=== PATIENT | male | born 1965 | race Caucasian/White ===

== ENCOUNTER 2017-08-24 09:35 | Inpatient (IN) | payer SELFPAY ==
[2017-08-24 10:14] LABS: #Basophils 0.1 thou/uL (0.0-0.2); #Eosinphils 0.1 thou/uL (0.0-0.7); #Lymphocytes 2.5 thou/uL (1.20-3.40); #Neutrophils 7.1 thou/uL (1.40-6.50); %Basophils 0.6 % (0.0-1.0); %Eosinophils 1.4 % (0.0-10.0); %Lymphocytes 23.2 % (21.0-51.0); %Monocytes 8.9 % (0.0-10.0); Hematocrit 53.2 % (42.0-52.0); Mean Platelet Volume 6.9 fL (7.4-10.4); Red Blood Cell (RBC) Count 5.26 mill/uL (4.70-6.10); White Blood Cell (WBC) Count 10.7 thou/uL (4.8-10.8)
[2017-08-24 10:36] LABS: ALT (SGPT) 61 U/L (8-55); AST (SGOT) 54 U/L (5-34); Alkaline Phosphatase 123 U/L (40-150); Anion Gap 13 mmol/L (10-20); BUN (Urea Nitrogen) 29 mg/dL (8.4-25.7); Bilirubin, Total 0.9 mg/dL (0.2-1.2); Calc. Creatinine Clearance 0 mL/min (70-130); Calcium 9.4 mg/dL (7.8-10.44); Carbon Dioxide 29 mmol/L (22-29); Chloride 100 mmol/L (98-107); Estimated GFR-MDRD 52; Protein, Total 7.9 g/dL (6.0-8.3)
--- NOTE | 2017-08-24 10:44 | RAD ---
CHEST 1 VIEW: HISTORY: Dyspnea. COMPARISON: None. FINDINGS: There is mild blunting of the right and left costophrenic sulcus. Lungs are hypoinflated. The heart size is enlarged. Mild pulmonary venous congestion. IMPRESSION: Cardiomegaly with mild pulmonary venous congestion. POS: [facility]
[2017-08-24 10:53] LABS: Troponin I 0.028 ng/mL (< 0.028)
[2017-08-24] MEDS ORDERED: Nitroglycerin 2% Ointment 1 INCH/1 GM Packet ONE (11:30)
[2017-08-24] MEDS ORDERED: Furosemide 40 MG/4 ML VIAL ONE (11:30)
[2017-08-24] MEDS ORDERED: Lidocaine Viscous Sol 2% 15 ml UD Cup ONE (12:22)
[2017-08-24] MEDS ORDERED: Mag-Al 1200 mg/1200 mg/30 ML UDCUP ONE (12:22)
--- NOTE | 2017-08-24 13:12 | HP ---
PRIMARY CARE PHYSICIAN: City call admission. REASON FOR ADMISSION: Acute on chronic systolic congestive heart failure exacerbation. HISTORY OF PRESENT ILLNESS: A 52-year-old male who has a history of dyspnea on exertion for about 1-1/2 months. Patient was having orthopnea and increasing lower extremity swelling and he was feeling chest congestion for about 1-1/2 months. His condition was declining in the form of his capacity to work and do stuff. He was getting more and more short of breath by doing stuff and that is why he went to [facility] where he was admitted for about 3-4 days in hospital and he had echocardiography done and at that time, he was treated with Lasix. He was given prescription of medication, but he was not able to refill those medications and on the day of discharge, he was given instruction to use LifeVest, but patient wanted to get second opinion and that is why he went to [facility] where he was observed overnight and he was given diagnosis of COPD, CHF and pneumonia, and exactly same diagnosis was also told at [facility]. The patient lives in [place], [place] and he over there hospital is closed and his physician moved from that area to [place] and since then patient does not have any primary care physician and he was not able to get medication. Patient has long history of hypertension for about 25 years and he was taking medications with control blood pressure. He is also a smoker up until 1 week ago when he was not able to smoke because of shortness of breath. He also has previous history of polysubstance abuse. Patient denies any cough productive of sputum. He denies any hemoptysis. He denies any calf tenderness. He denies any dizziness, palpitations or syncope. He denies any abdominal pain, constipation, diarrhea, melena or hematochezia. He denies any urinary tract infection symptoms. In our emergency room, patient was given Lasix and after that he had significant diuretic response. At this point, we are admitting this patient for further evaluation and treatment. PAST MEDICAL HISTORY: Recent diagnosis of congestive heart failure suspecting systolic heart failure, but type of EF is not exactly known, hypertension and COPD. PAST SURGICAL HISTORY: Colon resection, cholecystectomy, lower back surgery, cardiac catheterization about a year ago which was done at [facility] per patient and he was told that he does not have any blockage. PAST PSYCHIATRIC HISTORY: Anxiety and depression. SOCIAL HISTORY: The patient is former drug abuser. He abused cocaine, marijuana and methamphetamine. He used to smoke about 1 pack per day, but he tried to reduce smoking about a week. Otherwise, he used to be 1 pack smoker every day basis. He also drinks alcohol periodically. Currently, the patient denies any alcohol, smoking, or other illicit drug abuse. FAMILY HISTORY: Strong Positive family history of heart disease, congestive heart failure. ALLERGIES: No known drug allergies. CURRENT HOME MEDICATIONS: The patient is currently not taking any prescribed or non-prescribed medication. He does not have any medication from other hospital. He did not refill the prescription. EMERGENCY ROOM COURSE: Patient is given nitropatch, GI cocktail, Lasix 40 mg IV. REVIEW OF SYSTEMS: The following complete review of systems was negative, unless otherwise mentioned in the HPI or below: Constitutional: Weight loss or gain, ability to conduct usual activities. Skin: Rash, itching. Eyes: Double vision, pain. ENT/Mouth: Nose bleeding, neck stiffness, pain, tenderness. Cardiovascular: Palpitations, dyspnea on exertion, orthopnea. Respiratory: Shortness of breath, wheezing, cough, hemoptysis, fever, or night sweats. Gastrointestinal: Poor appetite, abdominal pain, heartburn, nausea, vomiting, constipation, or diarrhea. Genitourinary: Urgency, frequency, dysuria, nocturia. Musculoskeletal: Pain, swelling. Neurologic/Psychiatric: Anxiety, depression. Allergy/Immunologic: Skin rash, bleeding tendency. Please see my HPI for pertinent positives and negatives. All other review of systems were reviewed and negative. Review of systems is pretty much not reliable as well, because of patient's mental status changes. PHYSICAL EXAMINATION: VITAL SIGNS: Blood pressure 150/114, pulse 94, respiratory rate 18, temperature 98.4, saturation 95% on room air. Weight 74.8 kilograms. GENERAL: Patient is currently alert, awake, no obvious acute distress. HEAD: Normocephalic, atraumatic. Eyes: Pupils round, reactive to light. Extraocular muscles intact. ENT: Oropharynx within normal limits. Moist mucous membranes. No oral lesions. No pharyngeal erythema, no exudate. NECK: Supple. JVD present. No thyromegaly, no carotid bruit, no meningeal signs of irritation. LUNGS: Few basilar rales noted. Air entry reduced bilaterally. No wheezing, no accessory muscles of respiration in use. CARDIAC: S1, S2 regular, systolic murmur present at the parasternal area, grade 3/6, no gallop. ABDOMEN: Soft, bowel sounds present, nontender, nondistended. No organomegaly , no mass, no suprapubic tenderness. BACK: Unremarkable, no CVA tenderness. EXTREMITIES: Upper extremity: Passive movement of all joints are normal. Lower extremity: Trace edema noted. Good peripheral pulsation. SKIN: Multiple tattoos noted on the skin. The patient also has multiple skin lesions. HEMATOLOGICAL SYSTEM: No lymphadenopathy. PSYCHIATRIC: Normal affect. SIGNIFICANT LABS: EKG based on my review, normal sinus rhythm, left atrial enlargement. Chest x-ray based on my review, cardiomegaly, pulmonary vascular congestion. CBC: WBC 10.7, hemoglobin 17.0, platelet 260, MCV 101.0. BMP: Sodium 137, potassium 4.7, chloride 100, carbon dioxide 29, anion gap 13, BUN 29, creatinine 1.42, glucose 99, calcium 9.4. LFT: AST 54, ALT 61, alkaline phosphatase 123, albumin 3.9. CK-MB 20.9, troponin I 0.028. BNP 1865.6. ASSESSMENT AND PLAN/IMPRESSION: 1. Acute on chronic congestive heart failure. I am suspecting systolic heart failure given his drug abuse. The patient also reports that he had cardiac catheterization done about a year ago, which was known obstructive coronary artery disease and that is why I am suspecting nonischemic cardiomyopathy, but we need to confirm this with echocardiography. At this point, we will try to obtain medical records from other hospital where he was recently admitted and also we will repeat echocardiography in our hospital. We will do serial cardiac enzymes x2. We will continue with Lasix 40 mg IV b.i.d., nitropatch q.8 hourly. We will also start Coreg 3.125 mg p.o. b.i.d. and lisinopril 2.5 mg p.o. daily, fluid restriction 1500 mL per day. We will continue with Lasix 40 mg IV b.i.d. 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 Cardiac rehabilitation will be considered while in hospital. Necessary patient education about heart failure and dietary restriction and fluid restriction discussed with the patient in detail. 2. Macrocytosis. I will start folic acid and vitamin B12 and thiamine therapy. Macrocytosis is most likely related with his alcohol use. 3. Chronic kidney disease stage 3. We will monitor renal function. We will avoid nephrotoxic agent. 4. Transaminitis. I will check hepatitis profile tomorrow. Otherwise, we will repeat LFTs tomorrow one more time. I am suspecting from passive congestion. 5. Tobacco abuse disorder. Smoking cessation counseling given. Healthy lifestyle measures discussed with the patient. 6. History of drug abuse. I will check urine drug screen to rule out any ongoing drug abuse. 7. Hypertension. I will start with Coreg, lisinopril, and nitropatch at this point and adjust blood pressure medication. 8. Chronic obstructive pulmonary disease. We will continue DuoNeb therapy every 6 hourly along with Dulera 2 puffs inhalation b.i.d. 9. Multiple skin lesions suspecting for Staph infection. I will start doxycycline 100 mg p.o. b.i.d. 10. Deep venous thrombosis prophylaxis. Lovenox 40 mg subQ daily. 11. Gastrointestinal prophylaxis, Pepcid 20 mg p.o. b.i.d. 12. Code status: The patient is FULL CODE. The patient's is surrogate decision maker. Disposition plan based on clinical course, we are expecting patient's stay in hospital more than 2 midnights. Plan of care discussed with the patient and other family member at bedside in the emergency room. KESHA
[2017-08-24] MEDS ORDERED: Loperamide HCl 2 MG CAP PO PRN (13:26)
[2017-08-24] MEDS ORDERED: Mag-Al 1200 mg/1200 mg/30 ML UDCUP PO PRN (13:26)
[2017-08-24] MEDS ORDERED: Chloraseptic Spray 180 ml Bottle PO PRN (13:26)
[2017-08-24] MEDS ORDERED: Nitroglycerin 0.4 MG TAB (25 Tab Bottle) SL PRN (13:26)
[2017-08-24] MEDS ORDERED: Milk Of Magnesia 30 ML UDCUP PO PRN (13:26)
[2017-08-24] MEDS ORDERED: hydrALAZINE 20 MG/ML VIAL SLOW IVP PRN (13:26)
[2017-08-24] MEDS ORDERED: Sodium Chloride 0.65% Nasal 44 ML BOT EA NARE PRN (13:26)
[2017-08-24] MEDS ORDERED: Zolpidem Tartrate 5 MG TAB PO PRN (13:26)
[2017-08-24] MEDS ORDERED: Loratadine 10 MG TAB PO PRN (13:26)
[2017-08-24] MEDS ORDERED: Artificial Tears 18 DROP/0.9 ML EA EYE PRN (13:26)
[2017-08-24] MEDS ORDERED: Ondansetron ODT 4 MG TAB PO PRN (13:26)
[2017-08-24] MEDS ORDERED: Eucerin (Mineral Oil/Petrolatum,White) 30 gm Jar TOP PRN (13:26)
[2017-08-24] MEDS ORDERED: Senokot 8.6 MG TAB PO PRN (13:26)
[2017-08-24] MEDS ORDERED: Acetaminophen 325 MG TAB PO PRN (13:26)
[2017-08-24] MEDS ORDERED: Ondansetron HCl/PF 4 MG/2 ML Vial IVP PRN (13:26)
[2017-08-24] MEDS: Furosemide 40 MG/4 ML VIAL SLOW IVP SCH (15:40)
[2017-08-24 16:08] LABS: Bilirubin Negative (Negative); Blood, Urine Negative (Negative); Glucose, Urine (Dipstick) Negative (Negative); Ketone, Urine Negative (Negative); Nitrite Negative (Negative); Protein, Urine (Dipstick) Negative (Neg-Trace); Urobilinogen 0.2 mg/dL (0.2-1.0)
[2017-08-24 16:10] LABS: Bacteria/HPF None Seen HPF (None Seen); Hyaline Casts/LPF 0-3 HYALINE CAST LPF (0-3 Hyaline); RBC/HPF 0-3 HPF (0-3); Squamous Epithelial None Seen HPF (0-3); WBC/HPF None Seen HPF (0-3)
[2017-08-24 16:17] LABS: Amphetamine Not Detected (NotDetected); Methadone Not Detected (NotDetected); Methamphetamine Not Detected (NotDetected)
[2017-08-24] MEDS: Diabetic Tussin 200 MG/10 ML UDCUP PO PRN (16:51)
[2017-08-24 16:54] LABS: Troponin I 0.026 ng/mL (< 0.028)
[2017-08-24] MEDS: Mometasone/Formoterol 120 PUFF INHALER INH SCH (18:39)
[2017-08-24] MEDS: Nicotine 21 MG PATCH TOP SCH (19:37)
[2017-08-24] MEDS: Nitroglycerin 2% Ointment 1 INCH/1 GM Packet TOP SCH (20:35)
[2017-08-24] MEDS: Doxycycline 100 MG CAP PO SCH (20:35)
[2017-08-24] MEDS: Carvedilol 3.125 MG TAB PO SCH (20:35)
[2017-08-24] MEDS: Famotidine 20 MG TAB PO SCH (20:35)
[2017-08-25] MEDS: Nitroglycerin 2% Ointment 1 INCH/1 GM Packet TOP SCH ×3 (05:53→20:19)
[2017-08-25] MEDS: Furosemide 40 MG/4 ML VIAL SLOW IVP SCH ×2 (05:54→14:55)
[2017-08-25 06:16] LABS: ALT (SGPT) 50 U/L (8-55); AST (SGOT) 42 U/L (5-34); Alkaline Phosphatase 116 U/L (40-150); Anion Gap 13 mmol/L (10-20); BUN (Urea Nitrogen) 26 mg/dL (8.4-25.7); Bilirubin, Total 1.5 mg/dL (0.2-1.2); Calc. Creatinine Clearance 68 mL/min (70-130); Calcium 9.2 mg/dL (7.8-10.44); Carbon Dioxide 28 mmol/L (22-29); Chloride 96 mmol/L (98-107); Estimated GFR-MDRD 60; Globulin 3.7 g/dL (2.4-3.5); Protein, Total 7.2 g/dL (6.0-8.3); Uric Acid 8.4 mg/dL (3.5-7.2)
[2017-08-25] MEDS: Mometasone/Formoterol 120 PUFF INHALER INH SCH ×2 (07:15→18:14)
[2017-08-25 07:41] LABS: Hematocrit 52.1 % (42.0-52.0); White Blood Cell (WBC) Count 10.8 thou/uL (4.8-10.8)
[2017-08-25] MEDS: Potassium Chloride 20 MEQ TAB PO SCH ×2 (08:19→17:16)
[2017-08-25] MEDS: Cyanocobalamin (Vitamin B-12) 1,000 MCG TAB PO SCH (08:19)
[2017-08-25] MEDS: Carvedilol 3.125 MG TAB PO SCH ×2 (08:19→20:18)
[2017-08-25] MEDS: Famotidine 20 MG TAB PO SCH ×2 (08:20→20:18)
[2017-08-25] MEDS: Enoxaparin Sodium 40 MG/0.4 ML SYRINGE SC SCH (08:20)
[2017-08-25] MEDS: Doxycycline 100 MG CAP PO SCH ×2 (08:20→20:18)
[2017-08-25] MEDS: Lisinopril 2.5 MG TAB PO SCH (08:21)
[2017-08-25] MEDS: Multivitamin W/ Minerals 1 TAB PO SCH (08:21)
[2017-08-25] MEDS: Folic Acid 1 MG TAB PO SCH (08:21)
[2017-08-25] MEDS ORDERED: FLU VACC QS2017-18 36 mo. & older 0.5 ML SYRINGE IM ONE (09:00)
[2017-08-25 09:41] LABS: Neutrophil 75 % (42-75)
--- NOTE | 2017-08-25 09:51 | PDOC.PN ---
- Subjective Encounter Start Date: 08/25/17 Encounter Start Time: 07:30 -: old records requested/rev pt has good diuretic response, no fever, c/o cramps, no chest pain Patient seen and examined. No overnight events - Objective MAR Reviewed: Yes Vital Signs & Weight: Vital Signs (12 hours) Temp Pulse Resp BP Pulse Ox 08/25/17 08:21 94 08/25/17 08:15 97.8 F 94 20 121/83 93 L 08/25/17 07:15 99 15 97 08/25/17 04:53 92 L 08/25/17 04:00 97.7 F 97 18 130/90 92 L 08/25/17 00:45 95 08/25/17 00:00 97.5 F L 87 20 124/80 95 Weight Weight 156 lb 3.2 oz I&O: 08/24/17 08/25/17 08/26/17 06:59 06:59 06:59 Intake Total 950 Output Total 1800 Balance -850 Result Diagrams: 08/25/17 05:03 08/25/17 05:03 Radiology Reviewed by me: Yes EKG Reviewed by me: Yes (NSR) Phys Exam - Physical Examination Constitutional: NAD HEENT: PERRLA, moist MMs, sclera anicteric Neck: no JVD, supple Respiratory: no wheezing, no rhonchi few rales+ Cardiovascular: RRR, no significant murmur, no rub Gastrointestinal: soft, non-tender, no distention, positive bowel sounds Musculoskeletal: no edema, pulses present Neurological: non-focal, normal sensation, moves all 4 limbs Lymphatic: no nodes Psychiatric: normal affect, A&O x 3 Skin: no rash, normal turgor, cap refill <2 seconds Dx/Plan (1) Acute on chronic systolic (congestive) heart failure Code(s): I50.23 - ACUTE ON CHRONIC SYSTOLIC (CONGESTIVE) HEART FAILURE Status : Acute (2) CKD (chronic kidney disease) stage 3, GFR 30-59 ml/min Code(s): N18.3 - CHRONIC KIDNEY DISEASE, STAGE 3 (MODERATE) Status: Chronic (3) Hypertension Code(s): I10 - ESSENTIAL (PRIMARY) HYPERTENSION Status: Chronic (4) Macrocytosis Code(s): D75.89 - OTHER SPECIFIED DISEASES OF BLOOD AND BLOOD-FORMING ORGANS Status: Chronic (5) Tobacco abuse Code(s): Z72.0 - TOBACCO USE Status: Chronic - Plan cont current plan of care, plan discussed w/ family * echo pending * continue current optimum medical therapy for CHF * will continue to adjust meds. * replace electrolytes as needed * medication reviewed as below * symptomatic treatment Review of Systems - Review of Systems Constitutional: negative: Fever, Chills, Sweats, Weakness, Malaise, Other ENT: negative: Ear Pain, Ear Discharge, Nose Pain, Nose Discharge, Nose Congestion, Mouth Pain, Mouth Swelling, Throat Pain, Throat Swelling, Other Respiratory: Shortness of Breath, SOB with Excertion. negative: Cough, Dry, Hemoptysis, Pleuritic Pain, Sputum, Wheezing Cardiovascular: negative: Chest Pain, Palpitations, Orthopnea, Paroxysmal Noc. Dyspnea, Edema, Light Headedness, Other Gastrointestinal: negative: Nausea, Vomiting, Abdominal Pain, Diarrhea, Constipation, Melena, Hematochezia, Other Genitourinary: negative: Dysuria, Frequency, Incontinence, Hematuria, Retention , Other Musculoskeletal: negative: Neck Pain, Shoulder Pain, Arm Pain, Back Pain, Hand Pain, Leg Pain, Foot Pain, Other Skin: negative: Rash, Lesions, Walker, Bruising, Other - Medications/Allergies Allergies/Adverse Reactions: Allergies Allergy/AdvReac Type Severity Reaction Status Date / Time iodine Allergy Verified 08/24/17 14:36 Medications: Current Medications Acetaminophen (Tylenol) 650 mg PO Q4H PRN PRN Reason: Headache/Fever or Pain Hydrocodone Bitart/Acetaminophen ([place] 5/325) 1 tab PO Q4H PRN PRN Reason: Moderate Pain (4-6) Al Hydroxide/Mg Hydroxide (Maalox) 30 ml PO Q6H PRN PRN Reason: Heartburn or Indigestion Albuterol/Ipratropium (Duoneb) 3 ml NEB [id number] [facility] Last Admin: 08/25/17 07:18 Dose: Not Given Artificial Tears (Tears Naturale) 0 drop EA EYE PRN PRN PRN Reason: Dry Eyes Aspirin (Aspirin Chewable) 81 mg PO DAILY [facility] Last Admin: 08/25/17 08:19 Dose: 81 mg Carvedilol (Coreg) 3.125 mg PO BID [facility] Last Admin: 08/25/17 08:19 Dose: 3.125 mg Cyanocobalamin (Vitamin B-12) 1,000 mcg PO DAILY [facility] Last Admin: 08/25/17 08:19 Dose: 1,000 mcg Doxycycline Hyclate (Vibramycin) 100 mg PO BID [facility] Last Admin: 08/25/17 08:20 Dose: 100 mg Enoxaparin Sodium (Lovenox) 40 mg SC 0900 [facility] Last Admin: 08/25/17 08:20 Dose: 40 mg Famotidine (Pepcid) 20 mg PO BID [facility] Last Admin: 08/25/17 08:20 Dose: 20 mg Folic Acid (Folvite) 1 mg PO DAILY [facility] Last Admin: 08/25/17 08:21 Dose: 1 mg Furosemide (Lasix) 40 mg SLOW IVP 0600,1400 [facility] Last Admin: 08/25/17 05:54 Dose: 40 mg Guaifenesin (Robitussin Sf) 200 mg PO Q4H PRN PRN Reason: Cough Last Admin: 08/24/17 16:51 Dose: 200 mg Hydralazine HCl (Apresoline) 10 mg SLOW IVP Q4H PRN PRN Reason: Systolic BP > 180 Iron/Minerals/Multivitamins (Theragran M) 1 tab PO DAILY [facility] Last Admin: 08/25/17 08:21 Dose: 1 tab Lisinopril (Zestril) 2.5 mg PO DAILY [facility] Last Admin: 08/25/17 08:21 Dose: 2.5 mg Loperamide HCl (Imodium) 2 mg PO PRN PRN PRN Reason: Diarrhea/Loose Stools Loratadine (Claritin) 10 mg PO DAILYPRN PRN PRN Reason: Sinus Symptoms Magnesium Hydroxide (Milk Of Magnesium) 30 ml PO DAILYPRN PRN PRN Reason: Constipation Magnesium Oxide (Magnesium Oxide) 400 mg PO 1100 [facility] Mineral Oil/White Petrolatum (Eucerin Cream) 0 gm TOP BIDPRN PRN PRN Reason: Dry Skin Mometasone Furoate/Formoterol Fumar (Dulera 200 Mcg/5 Mcg Inhaler) 2 puff INH BID-RT [facility] Last Admin: 08/25/17 07:15 Dose: 2 puff Nicotine (Nicoderm Patch) 21 mg TOP 1800 [facility] Last Admin: 08/24/17 19:37 Dose: 21 mg Nitroglycerin (Nitrostat) 0.4 mg SL Q5MIN PRN PRN Reason: Chest Pain Nitroglycerin (Nitro-Bid 2% Ointment) 0.5 inch TOP Q8H [facility] Last Admin: 08/25/17 05:53 Dose: Not Given Ondansetron HCl (Zofran Odt) 4 mg PO Q6H PRN PRN Reason: Nausea/Vomiting Ondansetron HCl (Zofran) 4 mg IVP Q6H PRN PRN Reason: Nausea/Vomiting Phenol (Chloraseptic [place] 180 Ml Bot) 0 ml PO PRN PRN PRN Reason: Sore Throat Potassium Chloride (K-Dur) 20 meq PO BID-WM [facility] Last Admin: 08/25/17 08:19 Dose: 20 meq Senna (Senokot) 2 tab PO HSPRN PRN PRN Reason: Constipation Sodium Chloride ([place] Nasal [place] 0.65%) 0 ml EA NARE QIDPRN PRN PRN Reason: Nasal Congestion Thiamine HCl (Thiamine) 100 mg PO DAILY [facility] Last Admin: 08/25/17 08:21 Dose: 100 mg Zolpidem Tartrate (Ambien) 5 mg PO HSPRN PRN PRN Reason: Insomnia
[2017-08-25 11:59] VITALS: BMI 23.7
[2017-08-25] MEDS: Magnesium Oxide 400 MG TAB PO SCH (12:00)
[2017-08-25] MEDS: Nicotine 21 MG PATCH TOP SCH (17:16)
[2017-08-25] MEDS: Diabetic Tussin 200 MG/10 ML UDCUP PO PRN (20:20)
[2017-08-26] MEDS: Nitroglycerin 2% Ointment 1 INCH/1 GM Packet TOP SCH ×3 (04:41→21:02)
[2017-08-26] MEDS: Furosemide 40 MG/4 ML VIAL SLOW IVP SCH ×2 (05:18→14:59)
[2017-08-26] MEDS: Mometasone/Formoterol 120 PUFF INHALER INH SCH (07:47)
--- NOTE | 2017-08-26 08:25 | PDOC.PN ---
- Subjective Encounter Start Date: 08/26/17 Encounter Start Time: 07:45 Subjective: FEELING BETTER, COUGHING UP MUCOUS - Objective MAR Reviewed: Yes Vital Signs & Weight: Vital Signs (12 hours) Temp Pulse Resp BP Pulse Ox 08/26/17 07:24 98.5 F 86 16 137/88 97 08/26/17 04:00 98.0 F 85 18 115/82 93 L Weight Admit Weight 154 lb 4.8 oz Weight 155 lb 9.601 oz I&O: 08/25/17 08/26/17 08/27/17 06:59 06:59 06:59 Intake Total 950 980 Output Total 1800 0577 Balance -185 -3246 Result Diagrams: 08/25/17 05:03 08/25/17 05:03 Phys Exam - Physical Examination Constitutional: NAD HEENT: PERRLA, moist MMs LABIAL LESIONS HEALING, GLOSSITIS Neck: supple, full ROM Respiratory: clear to auscultation bilateral RHONCHI SCANT Cardiovascular: RRR Gastrointestinal: soft, non-tender, no distention Musculoskeletal: no edema, pulses present Neurological: non-focal, moves all 4 limbs Psychiatric: normal affect, A&O x 3 Dx/Plan (1) Acute on chronic systolic (congestive) heart failure Code(s): I50.23 - ACUTE ON CHRONIC SYSTOLIC (CONGESTIVE) HEART FAILURE Status : Acute (2) CKD (chronic kidney disease) stage 3, GFR 30-59 ml/min Code(s): N18.3 - CHRONIC KIDNEY DISEASE, STAGE 3 (MODERATE) Status: Chronic (3) Hypertension Code(s): I10 - ESSENTIAL (PRIMARY) HYPERTENSION Status: Chronic (4) Macrocytosis Code(s): D75.89 - OTHER SPECIFIED DISEASES OF BLOOD AND BLOOD-FORMING ORGANS Status: Chronic (5) Tobacco abuse Code(s): Z72.0 - TOBACCO USE Status: Chronic - Plan cont current plan of care, plan discussed w/ family, out of bed/ambulate EF 10-15% AICD VS. LIFEVEST PER CARDIOLOGY RECCS PENDING -: ADD VISCOUS LIDOCAINE FOR ORAL LESIONS * .
[2017-08-26] MEDS: Doxycycline 100 MG CAP PO SCH ×2 (09:20→21:01)
[2017-08-26] MEDS: Cyanocobalamin (Vitamin B-12) 1,000 MCG TAB PO SCH (09:21)
[2017-08-26] MEDS: Famotidine 20 MG TAB PO SCH ×2 (09:21→21:02)
[2017-08-26] MEDS: Potassium Chloride 20 MEQ TAB PO SCH ×2 (09:21→17:17)
[2017-08-26] MEDS: Carvedilol 3.125 MG TAB PO SCH ×2 (09:21→21:01)
[2017-08-26] MEDS: Folic Acid 1 MG TAB PO SCH (09:21)
[2017-08-26] MEDS: Multivitamin W/ Minerals 1 TAB PO SCH (09:21)
[2017-08-26] MEDS: Enoxaparin Sodium 40 MG/0.4 ML SYRINGE SC SCH (09:22)
[2017-08-26] MEDS: Lidocaine Viscous Sol 2% 15 ml UD Cup SSP SCH ×2 (09:27→17:17)
[2017-08-26] MEDS: Lisinopril 2.5 MG TAB PO SCH (09:27)
[2017-08-26] MEDS: Magnesium Oxide 400 MG TAB PO SCH (11:44)
[2017-08-26] MEDS: Nicotine 21 MG PATCH TOP SCH (17:22)
[2017-08-27] MEDS: Nitroglycerin 2% Ointment 1 INCH/1 GM Packet TOP SCH ×3 (05:14→20:47)
[2017-08-27] MEDS: Furosemide 40 MG/4 ML VIAL SLOW IVP SCH ×2 (05:45→14:45)
--- NOTE | 2017-08-27 09:33 | PDOC.PN ---
- Subjective Encounter Start Date: 08/27/17 Encounter Start Time: 07:00 -: old records requested/rev pt is overall doing well, no dyspnea or chest pain, pt is worried about low EF - Objective MAR Reviewed: Yes Vital Signs & Weight: Vital Signs (12 hours) Pulse Resp BP 08/27/17 04:05 82 16 121/82 Weight Admit Weight 154 lb 4.8 oz Weight 157 lb I&O: 08/26/17 08/27/17 08/28/17 06:59 06:59 06:59 Intake Total 980 976 Output Total 2677 1750 Balance -1697 -774 Result Diagrams: 08/25/17 05:03 08/25/17 05:03 EKG Reviewed by me: Yes (NSR) Phys Exam - Physical Examination Constitutional: NAD HEENT: PERRLA, moist MMs, sclera anicteric Neck: no JVD, supple Respiratory: no wheezing, no rales, no rhonchi Cardiovascular: RRR, no significant murmur, no rub Gastrointestinal: soft, non-tender, no distention, positive bowel sounds Musculoskeletal: no edema, pulses present Neurological: non-focal, normal sensation Lymphatic: no nodes Psychiatric: normal affect Skin: no rash, normal turgor Dx/Plan (1) Acute on chronic systolic (congestive) heart failure Code(s): I50.23 - ACUTE ON CHRONIC SYSTOLIC (CONGESTIVE) HEART FAILURE Status : Acute (2) CKD (chronic kidney disease) stage 3, GFR 30-59 ml/min Code(s): N18.3 - CHRONIC KIDNEY DISEASE, STAGE 3 (MODERATE) Status: Chronic (3) Hypertension Code(s): I10 - ESSENTIAL (PRIMARY) HYPERTENSION Status: Chronic (4) Macrocytosis Code(s): D75.89 - OTHER SPECIFIED DISEASES OF BLOOD AND BLOOD-FORMING ORGANS Status: Chronic (5) Tobacco abuse Code(s): Z72.0 - TOBACCO USE Status: Chronic - Plan cont current plan of care, plan discussed w/ family * will add aldactone * continue coreg and lisinopril * medication reviewed as below * symptomatic treatment * continue lasix * today will consult cardiology for AICD evaluation and ischemia evaluation * plan updated to family. Review of Systems - Review of Systems ENT: negative: Ear Pain, Ear Discharge, Nose Pain, Nose Discharge, Nose Congestion, Mouth Pain, Mouth Swelling, Throat Pain, Throat Swelling, Other Respiratory: negative: Cough, Dry, Shortness of Breath, Hemoptysis, SOB with Excertion, Pleuritic Pain, Sputum, Wheezing Cardiovascular: negative: Chest Pain, Palpitations, Orthopnea, Paroxysmal Noc. Dyspnea, Edema, Light Headedness, Other Gastrointestinal: negative: Nausea, Vomiting, Abdominal Pain, Diarrhea, Constipation, Melena, Hematochezia, Other Genitourinary: negative: Dysuria, Frequency, Incontinence, Hematuria, Retention , Other Musculoskeletal: negative: Neck Pain, Shoulder Pain, Arm Pain, Back Pain, Hand Pain, Leg Pain, Foot Pain, Other Skin: negative: Rash, Lesions, Walker, Bruising, Other - Medications/Allergies Allergies/Adverse Reactions: Allergies Allergy/AdvReac Type Severity Reaction Status Date / Time iodine Allergy Verified 08/24/17 14:36 Medications: Current Medications Acetaminophen (Tylenol) 650 mg PO Q4H PRN PRN Reason: Headache/Fever or Pain Hydrocodone Bitart/Acetaminophen ([place] 5/325) 1 tab PO Q4H PRN PRN Reason: Moderate Pain (4-6) Al Hydroxide/Mg Hydroxide (Maalox) 30 ml PO Q6H PRN PRN Reason: Heartburn or Indigestion Albuterol/Ipratropium (Duoneb) 3 ml NEB Q6H PRN PRN Reason: Dyspnea/Wheezing/SOB Artificial Tears (Tears Naturale) 0 drop EA EYE PRN PRN PRN Reason: Dry Eyes Aspirin (Aspirin Chewable) 81 mg PO DAILY [facility] Last Admin: 08/26/17 09:21 Dose: 81 mg Carvedilol (Coreg) 3.125 mg PO BID [facility] Last Admin: 08/26/17 21:01 Dose: 3.125 mg Cyanocobalamin (Vitamin B-12) 1,000 mcg PO DAILY [facility] Last Admin: 08/26/17 09:21 Dose: 1,000 mcg Doxycycline Hyclate (Vibramycin) 100 mg PO BID [facility] Last Admin: 08/26/17 21:01 Dose: 100 mg Enoxaparin Sodium (Lovenox) 40 mg SC 0900 [facility] Last Admin: 08/26/17 09:22 Dose: 40 mg Famotidine (Pepcid) 20 mg PO BID [facility] Last Admin: 08/26/17 21:02 Dose: 20 mg Folic Acid (Folvite) 1 mg PO DAILY [facility] Last Admin: 08/26/17 09:21 Dose: 1 mg Furosemide (Lasix) 40 mg SLOW IVP 0600,1400 [facility] Last Admin: 08/27/17 05:45 Dose: 40 mg Guaifenesin (Robitussin Sf) 200 mg PO Q4H PRN PRN Reason: Cough Last Admin: 08/25/17 20:20 Dose: 200 mg Hydralazine HCl (Apresoline) 10 mg SLOW IVP Q4H PRN PRN Reason: Systolic BP > 180 Iron/Minerals/Multivitamins (Theragran M) 1 tab PO DAILY [facility] Last Admin: 08/26/17 09:21 Dose: 1 tab Lidocaine HCl (Xylocaine 2% Viscous) 15 ml SSP BID-[facility] Last Admin: 08/26/17 17:17 Dose: 15 ml Lisinopril (Zestril) 2.5 mg PO DAILY [facility] Last Admin: 08/26/17 09:27 Dose: 2.5 mg Loperamide HCl (Imodium) 2 mg PO PRN PRN PRN Reason: Diarrhea/Loose Stools Loratadine (Claritin) 10 mg PO DAILYPRN PRN PRN Reason: Sinus Symptoms Magnesium Hydroxide (Milk Of Magnesium) 30 ml PO DAILYPRN PRN PRN Reason: Constipation Magnesium Oxide (Magnesium Oxide) 400 mg PO 1100 [facility] Last Admin: 08/26/17 11:44 Dose: 400 mg Mineral Oil/White Petrolatum (Eucerin Cream) 0 gm TOP BIDPRN PRN PRN Reason: Dry Skin Nicotine (Nicoderm Patch) 21 mg TOP 1800 [facility] Last Admin: 08/26/17 17:22 Dose: 21 mg Nitroglycerin (Nitrostat) 0.4 mg SL Q5MIN PRN PRN Reason: Chest Pain Nitroglycerin (Nitro-Bid 2% Ointment) 0.5 inch TOP Q8H [facility] Last Admin: 08/27/17 05:14 Dose: Not Given Ondansetron HCl (Zofran Odt) 4 mg PO Q6H PRN PRN Reason: Nausea/Vomiting Ondansetron HCl (Zofran) 4 mg IVP Q6H PRN PRN Reason: Nausea/Vomiting Phenol (Chloraseptic [place] 180 Ml Bot) 0 ml PO PRN PRN PRN Reason: Sore Throat Potassium Chloride (K-Dur) 20 meq PO BID-WM [facility] Last Admin: 08/26/17 17:17 Dose: 20 meq Senna (Senokot) 2 tab PO HSPRN PRN PRN Reason: Constipation Sodium Chloride ([place] Nasal [place] 0.65%) 0 ml EA NARE QIDPRN PRN PRN Reason: Nasal Congestion Sodium Chloride (Flush - Normal Saline) 10 ml IVF Q12HR [place] Sodium Chloride (Flush - Normal Saline) 10 ml IVF PRN PRN PRN Reason: Saline Flush Spironolactone (Aldactone) 25 mg PO QAM-WM [facility] Thiamine HCl (Thiamine) 100 mg PO DAILY [facility] Last Admin: 08/26/17 09:21 Dose: 100 mg Zolpidem Tartrate (Ambien) 5 mg PO HSPRN PRN PRN Reason: Insomnia
[2017-08-27] MEDS: Multivitamin W/ Minerals 1 TAB PO SCH (09:37)
[2017-08-27] MEDS: Spironolactone 25 MG TAB PO SCH (09:37)
[2017-08-27] MEDS: Doxycycline 100 MG CAP PO SCH ×2 (09:37→20:49)
[2017-08-27] MEDS: Carvedilol 3.125 MG TAB PO SCH (09:37)
[2017-08-27] MEDS: Cyanocobalamin (Vitamin B-12) 1,000 MCG TAB PO SCH (09:37)
[2017-08-27] MEDS: Potassium Chloride 20 MEQ TAB PO SCH ×2 (09:37→17:37)
[2017-08-27] MEDS: Famotidine 20 MG TAB PO SCH ×2 (09:38→20:49)
[2017-08-27] MEDS: Lisinopril 2.5 MG TAB PO SCH ×2 (09:38→20:49)
[2017-08-27] MEDS: Folic Acid 1 MG TAB PO SCH (09:38)
[2017-08-27] MEDS: Enoxaparin Sodium 40 MG/0.4 ML SYRINGE SC SCH (09:39)
[2017-08-27] MEDS ORDERED: Bisacodyl 10 MG SUPP PR PRN (10:11)
[2017-08-27] MEDS: Magnesium Oxide 400 MG TAB PO SCH (11:51)
[2017-08-27] MEDS: Lidocaine Viscous Sol 2% 15 ml UD Cup SSP SCH ×2 (11:51→17:37)
--- NOTE | 2017-08-27 15:09 | CON ---
DATE OF CONSULTATION: 08/27/2017 HISTORY OF PRESENT ILLNESS: Nacho Anderson a 52-year-old white male admitted with increased shortness of breath. Approximately 3 years ago, he was incarcerated and began to have chest discomfort. He was taken to [facility] and then transferred to [facility] in [place]. He underwent cardiac catheterization and was told that he did not have any significant blockages. No mention was made of weakness of his heart. Over the last one and a half month, he began having increasing shortness of breath as well as orthopnea. He went to [facility] and was admitted for 3-4 days. He was placed on Lasix and given a prescription for medications, but apparently for some reason, unable to get those medications. He also was instructed to use LifeVest. He now is admitted here for further evaluation. He denies any palpitations, chest pain or syncope. He does have some peripheral edema around his ankles which resolved with diuresis. PAST MEDICAL HISTORY: Hypertension, congestive heart failure, and COPD. Denies any history of hypercholesterolemia or diabetes. OPERATIONS: Colon resection, cholecystectomy, lower back surgery. MEDICATIONS AT HOME: Includes clonidine 0.2 b.i.d., enalapril 20 daily, furosemide 20 daily, hydrochlorothiazide 25 b.i.d., loratadine p.r.n., potassium 99 mg daily. ALLERGIES: None. SOCIAL HISTORY: He smoked up to 1 pack per day and was trying to cut back. He was a former IV drug abuser. He did use cocaine, methamphetamine use and marijuana. He did not drink alcohol much. FAMILY HISTORY: Positive for coronary artery disease. REVIEW OF SYSTEMS: Twelve point review of systems otherwise unremarkable. PHYSICAL EXAMINATION: VITAL SIGNS: 132/92, pulse 87. HEENT: PERRL. NECK: Supple. CHEST: Reveals somewhat distant, but clear breath sounds at this time. There is no wheezing. CARDIAC: S1 and S2 are normal without any S3 or S4. There is a 2/6 holosystolic murmur at the apex. ABDOMEN: Normal bowel sounds, without tenderness or organomegaly. EXTREMITIES: Revealed no clubbing, cyanosis or edema. NEUROLOGIC: Grossly intact. SKIN: Warm and dry. IMAGING AND LABORATORY DATA: EKG revealed normal sinus rhythm with left atrial enlargement, poor R-wave progression V1-V4. Echocardiogram revealed ejection fraction of 10%-15% with evidence of diastolic dysfunction, left ventricular enlargement, moderate mitral regurgitation, moderate tricuspid regurgitation. Hemoglobin 17.0, hematocrit 52.1, white count 10,800, platelets 265,000. Sodium 133, potassium 4.4, chloride 96, carbon dioxide 28, BUN 26, creatinine 1.27, and CK-MB 20.9. However, no CK was performed. Troponin I's are normal x3. BNP 1865.6. Urine drug screen is unremarkable. Hepatitis A, B, and C were all negative. IMPRESSION: 1. Acute on chronic systolic and diastolic congestive heart failure. 2. Reportedly normal coronary arteries on catheterization 3 years ago in [place]. 3. Hypertension. 4. Smoker. 5. History of IV drug abuse. 6. Chronic obstructive pulmonary disease. PLAN: The patient has symptoms for approximately 6 weeks and has an ejection fraction of 10%-15%. I would increase his carvedilol to 6.25 b.i.d. and his lisinopril to 2.5 b.i.d. He will continue to be diuresed. Request was made for his catheterization 3 years ago in [place]. Also, it was recommended that he wear a LifeVest over the next 3 months. At the present time, he does not qualify for ICD placement until he has been treated appropriately for 3 months. KESHA
[2017-08-27] MEDS: Nicotine 21 MG PATCH TOP SCH (17:37)
[2017-08-27] MEDS: Carvedilol 6.25 MG TAB PO SCH (17:37)
[2017-08-28] MEDS: Nitroglycerin 2% Ointment 1 INCH/1 GM Packet TOP SCH ×2 (03:23→12:40)
[2017-08-28] MEDS: Furosemide 40 MG/4 ML VIAL SLOW IVP SCH (05:08)
[2017-08-28] MEDS: Folic Acid 1 MG TAB PO SCH (08:52)
[2017-08-28] MEDS: Potassium Chloride 20 MEQ TAB PO SCH (08:52)
[2017-08-28] MEDS: Multivitamin W/ Minerals 1 TAB PO SCH (08:52)
[2017-08-28] MEDS: Cyanocobalamin (Vitamin B-12) 1,000 MCG TAB PO SCH (08:52)
[2017-08-28] MEDS: Carvedilol 6.25 MG TAB PO SCH (08:52)
[2017-08-28] MEDS: Famotidine 20 MG TAB PO SCH (08:52)
[2017-08-28] MEDS: Doxycycline 100 MG CAP PO SCH (08:52)
[2017-08-28] MEDS: Spironolactone 25 MG TAB PO SCH (08:52)
[2017-08-28] MEDS: Lidocaine Viscous Sol 2% 15 ml UD Cup SSP SCH (08:53)
[2017-08-28] MEDS: Lisinopril 2.5 MG TAB PO SCH (08:53)
[2017-08-28] MEDS: Enoxaparin Sodium 40 MG/0.4 ML SYRINGE SC SCH (08:54)
[2017-08-28] MEDS: HYDROcodone/Acetaminophen 5/325 mg Tablet PO PRN ×2 (08:55→12:44)
[2017-08-28] MEDS ORDERED: Polyethylene Glycol 3350 17 GM Packet PO SCH (09:00)
--- NOTE | 2017-08-28 11:26 | DIS ---
DATE OF ADMISSION: 08/24/2017 DATE OF DISCHARGE: 08/28/2017 PRIMARY CARE PHYSICIAN: [facility] call admission. DISCHARGE DISPOSITION: Home. PRIMARY DISCHARGE DIAGNOSIS: Acute on chronic systolic congestive heart failure. SECONDARY DISCHARGE DIAGNOSES: Nonischemic cardiomyopathy; tobacco abuse disorder; history of polysu bstance abuse; moderate tricuspid regurgitation; moderate mitral regurgitation; macrocytosis; hyperte nsion; chronic kidney disease, stage 3; chronic systolic heart failure. PRIMARY PROCEDURE/OPERATION: None. RADIOLOGICAL INVESTIGATION: Chest x-ray showed cardiomegaly, pulmonary vascular congestion. Echocar diography showed EF 10%-15%, moderate TR and moderate MR. SIGNIFICANT LABORATORY DATA: WBC 10.8, hemoglobin 17.0, platelets 265. Sodium 133, potassium 4.0, B UN 26, creatinine 1.27, calcium 8.4, AST 42, ALT 50, alkaline phosphatase 116, albumin 3.5. Urinalys is normal. Urine drug screen negative. Hepatitis profile negative. DISCHARGE MEDICATIONS: Aspirin 81 mg p.o. daily, Coreg 6.25 mg p.o. b.i.d., vitamin B12 1000 mcg p.o . daily, Pepcid 20 mg p.o. b.i.d., folic acid 1 mg p.o. daily, Lasix 40 mg p.o. daily, lisinopril 2.5 mg p.o. b.i.d., magnesium oxide 400 mg p.o. daily, multivitamin 1 tablet p.o. daily, potassium chlor nathan 20 mEq p.o. daily, Aldactone 25 mg p.o. daily, thiamine 100 mg p.o. daily, doxycycline 100 mg p.o . b.i.d. for 7 days. CONTRAINDICATIONS: None. CODE STATUS: FULL CODE. INPATIENT CONSULTANTS: Dr. Lorenzana was consulted for AICD evaluation. TEST RESULTS PENDING ON DISCHARGE: None. ALLERGIES: IODINE. DISCHARGE PLAN: Post hospital, the patient is advised to follow up with outpatient cardiac rehabilit ation as well as Heart Failure Clinic and Cardiology as instructed. The patient is also advised to f ollow up with primary care physician in 1 week. HOSPITAL COURSE: A 52-year-old male, who was admitted by me on 08/24/2017. Please see my HPI for fu rther details. The patient was admitted for increasing shortness of breath, edema of lower extremity , orthopnea. This patient has new diagnosis of congestive heart failure. He had echocardiography at [facility] and he was instructed to take medication, but he was not taking medication after discharge from hospital, and subsequently, he also went to [facility] where he was observed overnight and he w as given a prescription for medication, but he was not taking medication, because he [place], and he was readmitted in our hospital for increasing shortness of breath. He was havin g congestive heart failure exacerbation. During this admission, we repeated echocardiography and fou nd with EF 10%-15% with moderate MR and moderate TR. We treated him with IV Lasix, Coreg, lisinopril , Aldactone therapy while in hospital. Cardiology was consulted for ischemic evaluation as well as A ICD evaluation. At this point, because of his noncompliance with the treatment, Cardiology recommend ed to continue medical therapy for at least 3-6 months and then repeat echocardiography to consider A ICD evaluation. On quality assurance monitor final, he never had any nonsustained ventricular tachycardia or any k ind of arrhythmia. During this hospital course, we adjusted the above-mentioned medication and he wa s euvolemic. His LFT was abnormal and that is why we checked hepatitis profile that was also normal. His renal function was also stabilized and improved with diuretic therapy. The patient's symptomat ology significantly improved. By the time of discharge, he was able to lie down flat without any ort hopnea or any swelling. He was completely euvolemic. Cardiology recommended a LifeVest arrangement, but this patient has no insurance, and that is why we are working with the mental health case manager to assist wi th medication as well as LifeVest if possible. Otherwise, this patient is medically stable for disch arge later on today. While in hospital, we gave him doxycycline, because he was having multiple skin lesions which was suspected for folliculitis and had been treated with oral doxycycline with signifi cant improvement. While in hospital, we provided patient education about heart failure, dietary education, medication c ompliance education, and avoidance of polysubstance was discussed. PHYSICAL EXAMINATION: The patient is seen and examined at bedside today. VITAL SIGNS: Currently, temperature 97.8, pulse 89, respiratory rate 16, saturation 95% on room air, blood pressure 124/93, weight 154 pounds. GENERAL: The patient is currently alert, awake, in no acute distress. HEAD: Normocephalic, atraumatic. LUNGS: Clear. CARDIAC: S1, S2 regular without any murmur. ABDOMEN: Soft and benign without any tenderness. EXTREMITIES: No edema. NEUROLOGIC: Nonfocal examination. All new medication prescription sent to his pharmacy. Total time spent on discharge day, 31 minutes.
[2017-08-28] MEDS: Magnesium Oxide 400 MG TAB PO SCH (12:00)
[2017-08-28] MEDS ORDERED: Furosemide 40 MG TAB PO SCH (14:00)
[2017-08-28] MEDS ORDERED: Furosemide 20 MG TAB PO SCH (14:00)
[2017-08-28 16:52] VITALS: BP 132/93; TEMP 97.6
--- NOTE | 2017-09-21 14:04 | EKG ---
Test Reason : Blood Pressure : / mmHG Vent. Rate : 099 BPM Atrial Rate : 099 BPM P-R Int : 146 ms QRS Dur : 082 ms QT Int : 356 ms P-R-T Axes : 071 009 063 degrees QTc Int : 456 ms Normal sinus rhythm Left atrial enlargement Anterior infarct , age undetermined Poor R wave progression T wave inversion Abnormal ECG Confirmed by BRENDA ARANDA ([id number]), book or script editor FIDELINA HWANG ([id number]) on 09/21/2017 2:04:34 PM Referred By: Confirmed By:BRENDA ARANDA
== END 2017-08-28 16:50 | disposition home or self-care (01) | DRG 291 ==
LOC: ERS 09:35 → 2NO 13:37
PROVIDERS: ADMIT Internal Medicine; ATTEND Internal Medicine
DX: I13.0 Hypertensive heart and chronic kidney disease with heart failure and stage 1 through stage 4 chronic kidney disease, or unspecified chronic kidney disease (principal); I50.23 Acute on chronic systolic (congestive) heart failure; I42.9 Cardiomyopathy, unspecified; N18.3 Chronic kidney disease, stage 3 (moderate); I07.1 Rheumatic tricuspid insufficiency; F17.210 Nicotine dependence, cigarettes, uncomplicated; I34.0 Nonrheumatic mitral (valve) insufficiency; D75.89 Other specified diseases of blood and blood-forming organs; Z91.14 Patient's other noncompliance with medication regimen; J44.9 Chronic obstructive pulmonary disease, unspecified; R74.0 Nonspecific elevation of levels of transaminase and lactic acid dehydrogenase [LDH]; L98.9 Disorder of the skin and subcutaneous tissue, unspecified
CPT/HCPCS: 36415; 71010; 80053; 80074; 80306; 81001; 82553; 83880; 84484; 84550; 85007; 85025; 85027; 90471; 90682; 90732; 93005; 93306; 93798; 94640; 94664; 96374; A4216; G0008; G0009; J1650; J1940; J7620; Q2036

== ENCOUNTER 2018-01-04 11:43 | Inpatient (IN) | payer OTHER, SELFPAY ==
[2018-01-04] MEDS ORDERED: Albuterol Sulfate 2.5 mg/3 ml Neb ONE (12:22)
--- NOTE | 2018-01-04 12:49 | RAD ---
AP VIEW CHEST: HISTORY: Dyspnea, 52-year-old male. FINDINGS: AP view chest is obtained on 01/04/18. Comparison is made to previous exam from 08/24/17. AP view chest demonstrates some moderate cardiomegaly. Mild pulmonary vascular congestion is seen. N o evidence of effusions, pneumonia, or pneumothorax is seen. IMPRESSION: Cardiomegaly and pulmonary vascular congestion. POS: [facility]
[2018-01-04] MEDS ORDERED: Dexamethasone 10 MG/ML VIAL ONE (13:09)
[2018-01-04] MEDS ORDERED: Magnesium Sulfate 2 GM/100 ML BAG ONE (13:09)
[2018-01-04 13:12] LABS: Hemoglobin 16.8 g/dL (14.0-18.0); Mean Corpuscular Hemoglobin 32.2 pg (27.0-31.0); Mean Corpuscular Volume 97.5 fl (80.0-94.0); Mean Platelet Volume 7.1 fL (7.4-10.4); Platelet Count 182 thou/uL (130-400); RBC Distribution Width 13.2 % (11.5-14.5); Red Blood Cell (RBC) Count 5.24 mill/uL (4.70-6.10); White Blood Cell (WBC) Count 8.3 thou/uL (4.8-10.8)
[2018-01-04 13:29] LABS: ALT (SGPT) 32 U/L (8-55); AST (SGOT) 38 U/L (5-34); Alkaline Phosphatase 106 U/L (40-150); Anion Gap 12 mmol/L (10-20); BUN (Urea Nitrogen) 18 mg/dL (8.4-25.7); Bilirubin, Total 1.6 mg/dL (0.2-1.2); CK (CPK) 476 U/L (30-200); Calc. Creatinine Clearance 0 mL/min (70-130); Calcium 8.9 mg/dL (7.8-10.44); Carbon Dioxide 24 mmol/L (22-29); Chloride 102 mmol/L (98-107); Estimated GFR-MDRD 50; Globulin 3.7 g/dL (2.4-3.5); Glucose 99 mg/dL (70-105); Lipase 29 U/L (8-78); Potassium 4.2 mmol/L (3.5-5.1); Protein, Total 7.7 g/dL (6.0-8.3); Sodium 134 mmol/L (136-145)
[2018-01-04 13:33] LABS: Troponin I 0.022 ng/mL (< 0.028)
[2018-01-04 13:33] LABS: INR-International Normal Ratio 1.2; Prothrombin Time 15.1 SEC (12.0-14.7)
[2018-01-04 13:34] LABS: PTT 35.3 SEC (22.9-36.1)
[2018-01-04 13:37] LABS: Band 1 % (5-11); Lymphocytes 7 % (21-51); MDiff Complete? YES; Monocytes 6 % (0-10); Neutrophil 86 % (42-75); PLT Morphology Comment Appears Adequate
[2018-01-04] MEDS ORDERED: Nitroglycerin 2% Ointment 1 INCH/1 GM Packet ONE (14:05)
[2018-01-04] MEDS ORDERED: Furosemide 40 MG/4 ML VIAL ONE (14:05)
[2018-01-04 14:25] LABS: Bilirubin Negative (Negative); Blood, Urine Moderate (Negative); Clarity CLEAR (Clear); Glucose, Urine (Dipstick) Negative (Negative); Leukocyte Negative (Negative); Nitrite Negative (Negative); Protein, Urine (Dipstick) 100 mg/dL (Neg-Trace); Specific Gravity, Urine 1.021 (1.002-1.036)
[2018-01-04 14:28] LABS: Bacteria/HPF None Seen HPF (None Seen); Hyaline Casts/LPF 0-3 HYALINE CAST LPF (0-3 Hyaline); Squamous Epithelial None Seen HPF (0-3); WBC/HPF 0-3 HPF (0-3)
[2018-01-04] MEDS ORDERED: Acetaminophen 325 MG TAB PO PRN (15:18)
[2018-01-04] MEDS ORDERED: cefTRIAXone\\ROCEPHIN 1 GM in Sodium Chloride 0.9% 100 ML IVPB SCH (15:30)
[2018-01-04] MEDS ORDERED: cefTRIAXone\\ROCEPHIN 1 GM, Syringe 0.4 ML in Sterile Water 9.6 ML SLOW IVP SCH ×2 (16:00→18:00)
[2018-01-04] MEDS ORDERED: Carvedilol 25 MG TAB PO SCH (17:00)
[2018-01-04 18:01] LABS: CKMB 4.5 ng/mL (0-6.6); Troponin I 0.017 ng/mL (< 0.028)
[2018-01-04] MEDS: Ipratropium Bromide 2.5 ml Neb NEB SCH ×2 (18:35→21:30)
[2018-01-04] MEDS: Heparin 5,000 UNITS/ML VIAL SC SCH (20:05)
[2018-01-04] MEDS: Docusate 100 MG CAP PO SCH (20:05)
[2018-01-04] MEDS ORDERED: Carvedilol 6.25 MG TAB PO SCH (21:00)
--- NOTE | 2018-01-04 23:27 | HP ---
PRIMARY CARE PHYSICIAN: None. CHIEF COMPLAINT: Shortness of breath and cough. HISTORY OF PRESENT ILLNESS: Patient is a very pleasant 52-year-old male with past medical history of systolic heart failure, EF of 10%-15%, COPD, who comes in today with complaints of shortness of kamla th going on for the past 2-3 days. Patient states that for the past couple of days, he has been havi ng worsening shortness of breath on exertion. Denies any orthopnea or PND. Patient states that he h as been drinking a lot of water. The patient states that he is taking his diuretic; however, he ran out of his other medications for about 3 weeks. The patient denies any chest pressure; however, feel s that he has got pain and feels congested in his chest when he coughs. The patient states that he h as been coughing up, initially was clear, but now it is much yellow colored sputum. He also states t hat he has been feeling hot or cold; however, no chills. Patient states that he did not take his tem perature at home. Denies any gaining weight or increased lower extremity swelling. The patient stat es that he has been taking recreational drugs to make him feel better. He stated that he gave away h is LifeVest and was unable to follow up with his terrazzo supervisor due to right issues. Patient's cardiol randaly appointment has been rescheduled to sometimes in January. PAST MEDICAL HISTORY: Diagnosed of CHF systolic heart failure, EF of 10-15%, COPD, hypertension. PAST SURGICAL HISTORY: He had a colon resection, cholecystectomy, lower back surgery, cardiac cathet erization about a year ago in [place] and the patient was told that he does not have any blockages. SOCIAL HISTORY: The patient drinks occasional alcohol. Continues to smoke about 5-6 cigarettes kevin y. Prior to that, he was smoking a pack a day. Recreational drug use, he does use speed to make him feel better. FAMILY HISTORY: Strongly positive for heart disease and congestive heart failure. ALLERGIES: He has no known drug allergies. CURRENT MEDICATIONS: Patient states that he does not recall his medications this is from his previou s discharge summary. He states that none of his medications have changed. Patient is supposed to be on aspirin 81 mg daily, Coreg 6.25 mg p.o. b.i.d., vitamin B12 of 1000 mcg daily, Pepcid 20 mg p.o. b.i.d., folic acid 1 mg p.o. daily, Lasix 40 mg p.o. daily, lisinopril 2.5 mg p.o. b.i.d., magnesium oxide 400 mg p.o. daily, multivitamin 1 p.o. daily, potassium chloride 20 mEq daily, Aldactone 25 mg p.o. daily and thiamine 100 mg p.o. daily. REVIEW OF SYSTEMS: The following complete review of systems was negative, unless otherwise mentioned in the HPI or below: Constitutional: Weight loss or gain, ability to conduct usual activities. Sk in: Rash, itching. Eyes: Double vision, pain. ENT/Mouth: Nose bleeding, neck stiffness, pain, te nderness. Cardiovascular: Palpitations, dyspnea on exertion, orthopnea. Respiratory: Shortness of breath, wheezing, cough, hemoptysis, fever or night sweats. Gastrointestinal: Poor appetite, abdom inal pain, heartburn, nausea, vomiting, constipation, or diarrhea. Genitourinary: Urgency, frequenc y, dysuria, nocturia. Musculoskeletal: Pain, swelling. Neurologic/Psychiatric: Anxiety, depressio n. Allergy/Immunologic: Skin rash, bleeding tendency. PHYSICAL EXAMINATION: VITAL SIGNS: The patient's blood pressure was 130s/60s, heart rates in the 100s. He is 99% on room air, 18 respirations. GENERAL: He is awake, alert, oriented x3, does not appear in any respiratory distress. CARDIOVASCULAR: S1, S2 present, tachycardic, but regular. Chest, no reproducible pain. LUNGS: Mild expiratory wheezing to bilateral bases and mild rhonchi all over. ABDOMEN: Soft, nontender. Bowel sounds are present x2. SKIN: Patient has several tattoos to the front of his chest. EXTREMITIES: No pitting edema noted. LABORATORY DATA: WBCs of 8.3, hemoglobin of 16.8, hematocrit of 51.1, platelets of 182. He has 1 ba nd. Chemistry: Sodium of 134, potassium of 4.2, bicarbonate of 24, anion gap of 12, BUN of 18, crea tinine of 1.48. His AST is mildly elevated at 38 and ALT of 1.6. His proBNP was 1376. His troponin initially was negative. Lipase is 29. EKG just shows sinus tachycardia. Chest x-ray upon my inter pretation looks hyperinflated lungs and cardiomegaly and mild vascular congestion. ASSESSMENT AND PLAN: The patient is a very pleasant 52-year-old male who initially presented to the hospital with complaints of shortness of breath. 1. Shortness of breath. This could be congestive heart failure exacerbation, acute systolic heart f ailure exacerbation versus chronic obstructive pulmonary disease exacerbation versus infectious. The patient's influenza swab was negative. We will check sputum for culture and sensitivities. We will also check a procalcitonin. His proBNP is mildly elevated; however, I did not see any other physica l signs of heart failure except for the patient has been complaining of shortness of breath which cou ld also be secondary to chronic obstructive pulmonary disease exacerbation since he does have some rh onchi and wheezing on physical examination of his lungs. I will start the patient on some DuoNebs. We will hold off on the steroids for now. We will also continue diuretics and cover him for communit y-acquired pneumonia just to be precautionary. 2. Mild acute kidney injury on chronic kidney disease. We will continue to monitor. We will hold t he lisinopril for now. 3. Smoking. Patient was advised against smoking session. 4. Recreational drug use. The patient was advised against using recreational drug use and was asked to follow up with his PCP and his Cardiology in regards to his underlying medical issues rather than using recreational drug use to make him feel better. 5. Deep venous thrombosis prophylaxis. We will put patient on heparin.
[2018-01-05] MEDS: Ipratropium Bromide 2.5 ml Neb NEB SCH ×3 (01:33→12:08)
[2018-01-05 07:02] LABS: Anion Gap 15 mmol/L (10-20); BUN (Urea Nitrogen) 27 mg/dL (8.4-25.7); Calc. Creatinine Clearance 65 mL/min (70-130); Carbon Dioxide 18 mmol/L (22-29); Chloride 104 mmol/L (98-107); Estimated GFR-MDRD 61; Glucose 131 mg/dL (70-105); Sodium 132 mmol/L (136-145)
[2018-01-05] MEDS ORDERED: Carvedilol 6.25 MG TAB PO SCH (08:00)
[2018-01-05 08:18] LABS: Band 18 % (5-11); Hemoglobin 17.3 g/dL (14.0-18.0); Lymphocytes 13 % (21-51); MDiff Complete? YES; Mean Corpuscular Hemoglobin 34.2 pg (27.0-31.0); Monocytes 2 % (0-10); Neutrophil 67 % (42-75); Platelet Count 162 thou/uL (130-400); RBC Distribution Width 13.2 % (11.5-14.5); Red Blood Cell (RBC) Count 5.05 mill/uL (4.70-6.10); White Blood Cell (WBC) Count 7.6 thou/uL (4.8-10.8)
[2018-01-05] MEDS ORDERED: Furosemide 40 MG/4 ML VIAL SLOW IVP SCH (09:00)
[2018-01-05] MEDS: Heparin 5,000 UNITS/ML VIAL SC SCH ×3 (09:52→20:16)
[2018-01-05] MEDS: Losartan 25 MG TAB PO SCH (09:52)
[2018-01-05] MEDS: Cyanocobalamin (Vitamin B-12) 1,000 MCG TAB PO SCH (09:52)
[2018-01-05] MEDS: Magnesium Oxide 400 MG TAB PO SCH (09:52)
[2018-01-05] MEDS: Folic Acid 1 MG TAB PO SCH (09:52)
[2018-01-05] MEDS: Aspirin 81 mg Enteric Coated Tablet PO SCH (09:52)
[2018-01-05] MEDS: Docusate 100 MG CAP PO SCH ×2 (09:53→20:16)
--- NOTE | 2018-01-05 13:23 | PDOC.PN ---
- Subjective Encounter Start Date: 01/05/18 Encounter Start Time: 13:00 Subjective: no sob or chest pain -: has cough mostly dry -: blurry vision with pupillary dila on right - Objective MAR Reviewed: Yes Vital Signs & Weight: Vital Signs (12 hours) Temp Pulse Resp BP BP Pulse Ox 01/05/18 12:08 93 12 01/05/18 11:31 98.7 F 96 29 H 117/88 96 01/05/18 09:53 123/83 01/05/18 08:00 97.4 F L 81 23 H 92 L 01/05/18 07:30 97.4 F L 81 23 H 113/77 92 L 01/05/18 03:00 97.7 F 79 14 103/67 94 L 01/05/18 01:33 82 16 94 L Weight Weight 147 lb 6.4 oz I&O: 01/04/18 01/05/18 01/06/18 06:59 06:59 06:59 Intake Total 400 Output Total 550 Balance -150 Result Diagrams: 01/05/18 06:25 01/05/18 06:25 Phys Exam - Physical Examination HEENT: moist MMs right pupil is 5mm and dilated, left 3 mm Neck: no JVD, supple Respiratory: no wheezing, no rales rhonchi+ Cardiovascular: RRR, no significant murmur Gastrointestinal: soft, non-tender Musculoskeletal: no edema, pulses present Neurological: non-focal, moves all 4 limbs Psychiatric: normal affect, A&O x 3 Dx/Plan (1) COPD (chronic obstructive pulmonary disease) Status: Acute Qualifiers: COPD type: COPD with acute exacerbation Qualified Code(s): J44.1 - Chronic obstructive pulmonary disease with (acute) exacerbation (2) Drug abuse Code(s): F19.10 - OTHER PSYCHOACTIVE SUBSTANCE ABUSE, UNCOMPLICATED Status: Acute Comment: meth (speed) daily in all forms, last use was (3) Acute on chronic systolic (congestive) heart failure Code(s): I50.23 - ACUTE ON CHRONIC SYSTOLIC (CONGESTIVE) HEART FAILURE Status : Acute Comment: ef of 15% (4) Hypertension Code(s): I10 - ESSENTIAL (PRIMARY) HYPERTENSION Status: Chronic Qualifiers: Hypertension type: essential hypertension Qualified Code(s): I10 - Essential (primary) hypertension (5) Tobacco abuse Code(s): Z72.0 - TOBACCO USE Status: Chronic - Plan oral doxy, prednisone -: lasix iv q12h -: CT brain due to unilateral pupillary dila with blurriness -: denies using meth today -: watch for hco3, is on asp, cozaar, dc coreg for now * . Review of Systems - Medications/Allergies Allergies/Adverse Reactions: Allergies Allergy/AdvReac Type Severity Reaction Status Date / Time iodine Allergy Verified 08/24/17 14:36 Medications: Current Medications Acetaminophen (Tylenol) 650 mg PO Q4H PRN PRN Reason: Headache/Fever or Pain Aspirin (Ecotrin) 81 mg PO DAILY [facility] Last Admin: 01/05/18 09:52 Dose: 81 mg Carvedilol (Coreg) 6.25 mg PO BID-WM [facility] Last Admin: 01/05/18 09:53 Dose: 6.25 mg Cyanocobalamin (Vitamin B-12) 1,000 mcg PO DAILY [facility] Last Admin: 01/05/18 09:52 Dose: 1,000 mcg Docusate Sodium (Colace) 100 mg PO BID [facility] Last Admin: 01/05/18 09:53 Dose: Not Given Folic Acid (Folvite) 1 mg PO DAILY [facility] Last Admin: 01/05/18 09:52 Dose: 1 mg Furosemide (Lasix) 40 mg SLOW IVP 0600,1400 [facility] Heparin Sodium (Porcine) (Heparin) 5,000 units SC TID [facility] Last Admin: 01/05/18 09:52 Dose: 5,000 units Ipratropium [place] (Atrovent) 2.5 ml NEB [id number] [facility] Last Admin: 01/05/18 12:08 Dose: 2.5 ml Losartan Potassium (Cozaar) 25 mg PO DAILY [facility] Last Admin: 01/05/18 09:52 Dose: 25 mg Magnesium Oxide (Magnesium Oxide) 400 mg PO DAILY [facility] Last Admin: 01/05/18 09:52 Dose: 400 mg Thiamine HCl (Thiamine) 100 mg PO DAILY [facility] Last Admin: 01/05/18 09:52 Dose: 100 mg
[2018-01-05] MEDS ORDERED: predniSONE 20 MG TAB PO SCH (13:30)
--- NOTE | 2018-01-05 13:50 | CT ---
CT OF THE BRAIN WITHOUT CONTRAST: INDICATION: History of visual changes with blurriness and dilated right pupil. COMPARISON: None. FINDINGS: No acute infarct, hemorrhage, or hydrocephalus is present. The visualized orbits appear within cris l limits. There is mild chronic small-vessel white matter ischemic change. Mastoid air cells are cl ear. Paranasal sinuses are clear. The skull is intact. IMPRESSION: No acute intracranial abnormality. POS: [facility]
[2018-01-05] MEDS: Furosemide 40 MG/4 ML VIAL SLOW IVP SCH (14:21)
[2018-01-05] MEDS ORDERED: Azithromycin 500 MG in Sodium Chloride 0.9% 250 ML 250 ML IVPB SCH (16:00)
[2018-01-05 16:28] LABS: Amphetamine Detected (NotDetected); Barbiturates Screen Not Detected (NotDetected); Benzodiazepine Screen Not Detected (NotDetected); Cocaine Metabolite Screen Not Detected (NotDetected); Medtox Control Line Valid? VALID (VALID); Medtox Reader # READER 1; Methadone Not Detected (NotDetected); Methamphetamine Detected (NotDetected); Opiate Screen Not Detected (NotDetected); Oxycodone Screen Not Detected (NotDetected); Phencyclidine (PCP) Not Detected (NotDetected); THC/Cannabinoid Screen Detected (NotDetected); Tricyclic Screen Not Detected (NotDetected)
[2018-01-05] MEDS: Doxycycline 100 MG CAP PO SCH (20:16)
[2018-01-06 04:20] LABS: #Lymphocytes 1.2 thou/uL (1.20-3.40); #Monocytes 0.9 thou/uL (0.11-0.59); #Neutrophils 8.3 thou/uL (1.40-6.50); %Eosinophils 0.1 % (0.0-10.0); %Lymphocytes 11.2 % (21.0-51.0); %Monocytes 8.4 % (0.0-10.0); %Neutrophils 80.2 % (42.0-75.0); Hemoglobin 18.2 g/dL (14.0-18.0); Mean Corpuscular HGB CONC 33.5 g/dL (32.0-36.0); Mean Corpuscular Hemoglobin 33.3 pg (27.0-31.0); Mean Corpuscular Volume 99.5 fl (80.0-94.0); Mean Platelet Volume 8.6 fL (7.4-10.4); Platelet Count 216 thou/uL (130-400); RBC Distribution Width 13.1 % (11.5-14.5); Red Blood Cell (RBC) Count 5.47 mill/uL (4.70-6.10); White Blood Cell (WBC) Count 10.4 thou/uL (4.8-10.8)
[2018-01-06 04:27] LABS: Anion Gap 11 mmol/L (10-20); BUN (Urea Nitrogen) 34 mg/dL (8.4-25.7); Calc. Creatinine Clearance 62 mL/min (70-130); Calcium 9.2 mg/dL (7.8-10.44); Carbon Dioxide 25 mmol/L (22-29); Chloride 103 mmol/L (98-107); Estimated GFR-MDRD 57; Glucose 121 mg/dL (70-105); Potassium 4.8 mmol/L (3.5-5.1); Sodium 134 mmol/L (136-145)
[2018-01-06] MEDS: Furosemide 40 MG/4 ML VIAL SLOW IVP SCH ×2 (06:15→14:42)
[2018-01-06] MEDS: predniSONE 20 MG TAB PO SCH (08:11)
[2018-01-06] MEDS: Doxycycline 100 MG CAP PO SCH ×2 (08:12→20:35)
[2018-01-06] MEDS: Magnesium Oxide 400 MG TAB PO SCH (08:12)
[2018-01-06] MEDS: Docusate 100 MG CAP PO SCH ×2 (08:12→20:35)
[2018-01-06] MEDS: Folic Acid 1 MG TAB PO SCH (08:12)
[2018-01-06] MEDS: Aspirin 81 mg Enteric Coated Tablet PO SCH (08:12)
[2018-01-06] MEDS: Cyanocobalamin (Vitamin B-12) 1,000 MCG TAB PO SCH (08:12)
[2018-01-06] MEDS: Losartan 25 MG TAB PO SCH (08:12)
[2018-01-06] MEDS: Heparin 5,000 UNITS/ML VIAL SC SCH ×3 (08:13→20:36)
--- NOTE | 2018-01-06 11:08 | PDOC.PN ---
- Subjective Encounter Start Date: 01/06/18 Encounter Start Time: 08:40 Subjective: breathing better -: no chest pain or palp - Objective MAR Reviewed: Yes Vital Signs & Weight: Vital Signs (12 hours) Temp Pulse Resp BP Pulse Ox 01/06/18 08:10 97.5 F L 90 20 140/92 H 95 01/06/18 06:23 91 12 01/06/18 04:00 97.7 F 87 20 112/81 90 L Weight Weight 145 lb 9.6 oz I&O: 01/05/18 01/06/18 01/07/18 06:59 06:59 06:59 Intake Total 400 1220 Output Total 550 2250 Balance -150 -1030 Result Diagrams: 01/06/18 03:47 01/06/18 03:47 Phys Exam - Physical Examination HEENT: PERRLA, moist MMs Neck: no JVD, supple Respiratory: no wheezing, no rales Cardiovascular: RRR, no significant murmur Gastrointestinal: soft, non-tender, positive bowel sounds Musculoskeletal: no edema, pulses present Neurological: non-focal, moves all 4 limbs Psychiatric: normal affect, A&O x 3 Dx/Plan (1) Acute on chronic systolic (congestive) heart failure Code(s): I50.23 - ACUTE ON CHRONIC SYSTOLIC (CONGESTIVE) HEART FAILURE Status : Acute Comment: ef of 15% (2) COPD (chronic obstructive pulmonary disease) Status: Acute Qualifiers: COPD type: COPD with acute exacerbation Qualified Code(s): J44.1 - Chronic obstructive pulmonary disease with (acute) exacerbation (3) Drug abuse Code(s): F19.10 - OTHER PSYCHOACTIVE SUBSTANCE ABUSE, UNCOMPLICATED Status: Acute Comment: meth (speed) daily in all forms, last use was (4) Hypertension Code(s): I10 - ESSENTIAL (PRIMARY) HYPERTENSION Status: Chronic Qualifiers: Hypertension type: essential hypertension Qualified Code(s): I10 - Essential (primary) hypertension (5) Tobacco abuse Code(s): Z72.0 - TOBACCO USE Status: Chronic - Plan will switch to oral lasix from am -: watch for renal function -: counselled reg substance abuse, dietary and med compliance -: to amb as tolerated in hallway -: dc plan in am, echo results pending * . Review of Systems - Medications/Allergies Allergies/Adverse Reactions: Allergies Allergy/AdvReac Type Severity Reaction Status Date / Time iodine Allergy Verified 08/24/17 14:36 Medications: Current Medications Acetaminophen (Tylenol) 650 mg PO Q4H PRN PRN Reason: Headache/Fever or Pain Last Admin: 01/05/18 15:38 Dose: 650 mg Albuterol/Ipratropium (Duoneb) 3 ml NEB [id number] [facility] Last Admin: 01/06/18 06:23 Dose: 3 ml Aspirin (Ecotrin) 81 mg PO DAILY [facility] Last Admin: 01/06/18 08:12 Dose: 81 mg Cyanocobalamin (Vitamin B-12) 1,000 mcg PO DAILY [facility] Last Admin: 01/06/18 08:12 Dose: 1,000 mcg Docusate Sodium (Colace) 100 mg PO BID [facility] Last Admin: 01/06/18 08:12 Dose: Not Given Doxycycline Hyclate (Vibramycin) 100 mg PO BID [facility] Last Admin: 01/06/18 08:12 Dose: 100 mg Folic Acid (Folvite) 1 mg PO DAILY [facility] Last Admin: 01/06/18 08:12 Dose: 1 mg Furosemide (Lasix) 40 mg SLOW IVP 0600,1400 [facility] Last Admin: 01/06/18 06:15 Dose: 40 mg Heparin Sodium (Porcine) (Heparin) 5,000 units SC TID [facility] Last Admin: 01/06/18 08:13 Dose: 5,000 units Losartan Potassium (Cozaar) 25 mg PO DAILY [facility] Last Admin: 01/06/18 08:12 Dose: 25 mg Magnesium Oxide (Magnesium Oxide) 400 mg PO DAILY [facility] Last Admin: 01/06/18 08:12 Dose: 400 mg Prednisone (Prednisone) 40 mg PO QAM-WM [facility] Last Admin: 01/06/18 08:11 Dose: 40 mg Thiamine HCl (Thiamine) 100 mg PO DAILY [facility] Last Admin: 01/06/18 08:12 Dose: 100 mg
[2018-01-07] MEDS: Furosemide 40 MG/4 ML VIAL SLOW IVP SCH (06:24)
[2018-01-07 06:29] VITALS: BMI 21.3
[2018-01-07] MEDS ORDERED: Sodium Chloride 0.9% 10 ML ONE (07:08)
[2018-01-07] MEDS ORDERED: Furosemide 40 MG TAB PO SCH (07:30)
[2018-01-07] MEDS: predniSONE 20 MG TAB PO SCH (07:52)
[2018-01-07] MEDS: Docusate 100 MG CAP PO SCH (07:53)
[2018-01-07] MEDS: Cyanocobalamin (Vitamin B-12) 1,000 MCG TAB PO SCH (07:53)
[2018-01-07] MEDS: Doxycycline 100 MG CAP PO SCH (07:53)
[2018-01-07] MEDS: Aspirin 81 mg Enteric Coated Tablet PO SCH (07:53)
[2018-01-07] MEDS: Folic Acid 1 MG TAB PO SCH (07:54)
[2018-01-07] MEDS: Losartan 25 MG TAB PO SCH (07:54)
[2018-01-07] MEDS: Heparin 5,000 UNITS/ML VIAL SC SCH ×2 (07:54→15:37)
[2018-01-07] MEDS: Magnesium Oxide 400 MG TAB PO SCH (07:55)
--- NOTE | 2018-01-07 12:34 | PDOC.PN ---
- Subjective Encounter Start Date: 01/07/18 Encounter Start Time: 07:15 Subjective: no sob or palp -: feels better -: is amb and eating well - Objective MAR Reviewed: Yes Vital Signs & Weight: Vital Signs (12 hours) Temp Pulse Resp BP Pulse Ox 01/07/18 11:26 85 16 95 01/07/18 11:08 97.4 F L 91 18 156/100 H 79 L 01/07/18 08:48 135/95 H 01/07/18 07:43 97.9 F 81 18 146/101 H 95 01/07/18 06:44 94 16 96 01/07/18 05:30 97.8 F 97 18 135/96 H 95 Weight Weight 140 lb 8 oz I&O: 01/06/18 01/07/18 01/08/18 06:59 06:59 06:59 Intake Total 1220 900 Output Total 2250 2756 Balance -5188 -1445 Result Diagrams: 01/06/18 03:47 01/06/18 03:47 Phys Exam - Physical Examination HEENT: PERRLA, moist MMs Neck: no JVD, supple Respiratory: no wheezing, no rales Cardiovascular: RRR, no significant murmur Gastrointestinal: soft, non-tender, positive bowel sounds Musculoskeletal: no edema, pulses present Neurological: non-focal, moves all 4 limbs Psychiatric: normal affect, A&O x 3 Dx/Plan (1) Acute on chronic systolic (congestive) heart failure Code(s): I50.23 - ACUTE ON CHRONIC SYSTOLIC (CONGESTIVE) HEART FAILURE Status : Acute Comment: ef of 15% (2) COPD (chronic obstructive pulmonary disease) Status: Acute Qualifiers: COPD type: COPD with acute exacerbation Qualified Code(s): J44.1 - Chronic obstructive pulmonary disease with (acute) exacerbation (3) Drug abuse Code(s): F19.10 - OTHER PSYCHOACTIVE SUBSTANCE ABUSE, UNCOMPLICATED Status: Acute Comment: meth (speed) daily in all forms, last use was (4) Hypertension Code(s): I10 - ESSENTIAL (PRIMARY) HYPERTENSION Status: Chronic Qualifiers: Hypertension type: essential hypertension Qualified Code(s): I10 - Essential (primary) hypertension (5) Tobacco abuse Code(s): Z72.0 - TOBACCO USE Status: Chronic - Plan hemostable -: dc pt home -: cm for help with meds as pt cant afford them -: to f/u with PCP in 1 week, counselled reg diet/med compliance and avoid str -: -eet drugs * .
--- NOTE | 2018-01-07 14:59 | DIS ---
DATE OF ADMISSION: 01/04/2018 DATE OF DISCHARGE: 01/07/2018 DISCHARGE DISPOSITION: To home. PRIMARY DISCHARGE DIAGNOSES: Acute on chronic congestive heart failure exacerbation with systolic dy sfunction and ejection fraction of around 15%, mild chronic obstructive pulmonary disease exacerbatio n, resolving, methamphetamine abuse, hypertension, and tobacco abuse. PROCEDURES DONE DURING HOSPITALIZATION: The patient has had chest x-ray done which showed cardiomega ly with pulmonary vascular congestion. CT brain showed no acute intracranial abnormalities. Blood c ultures x2 no growth. Influenza A and B antigens were negative. Discharge BUN and creatinine is 34 and 1.3. BNP was 1376. Troponins x3 were negative. Urine tox screen was positive for amphetamine, methamphetamine, and cannabinoids. DISCHARGE MEDICATIONS: Aspirin 81 mg p.o. daily, Coreg 6.25 mg p.o. twice daily, vitamin B12 1000 mc g p.o. daily, albuterol inhaler q.6 hourly p.r.n., folic acid 1 mg p.o. daily, Lasix 40 mg p.o. daily , Cozaar 25 mg p.o. daily, magnesium oxide 400 mg p.o. daily, multivitamin 1 tab once daily, K-Dur 20 mEq p.o. daily, prednisone tapering dose starting at 10 mg daily over a course of 7 days and to disc ontinue, and thiamine 100 mg p.o. daily. ALLERGIES: IODINE. DISCHARGE PLAN: Patient to follow up with primary care physician in 1 week. BRIEF COURSE DURING HOSPITALIZATION: Patient initially came in with complaints of shortness of breat h and cough. He was found to be in acute on chronic CHF exacerbation with systolic dysfunction and e jection fraction of around 15%. The patient also had a cough with yellow expectoration with mild chr onic obstructive pulmonary disease exacerbation. The patient admitted to using street drugs. He was gently diuresed during his stay here. He has remained hemodynamically stable. The patient is able to ambulate well and sleep well with no orthopnea at the time of discharge. He was counseled with re gards to medication and dietary compliance and was also counseled regarding stopping amphetamine abus e. He needs to follow up with primary care physician in 1 week. Please see a [id number].
[2018-01-07 15:59] VITALS: BP 147/102; TEMP 97.6
--- NOTE | 2018-01-07 19:12 | EKG ---
Test Reason : STAT Blood Pressure : / mmHG Vent. Rate : 085 BPM Atrial Rate : 085 BPM P-R Int : 146 ms QRS Dur : 094 ms QT Int : 394 ms P-R-T Axes : 075 039 042 degrees QTc Int : 468 ms Normal sinus rhythm Right atrial enlargement Moderate voltage criteria for LVH, may be normal variant Borderline ECG When compared with ECG of 04-JAN-2018 11:50, (Unconfirmed) Criteria for Anterior infarct are no longer Present Nonspecific T wave abnormality no longer evident in Lateral leads Confirmed by ROBERT ATWOOD ([id number]) on 01/07/2018 7:12:34 PM Referred By: ARTURO Confirmed By:ROBERT ATWOOD
--- NOTE | 2018-03-09 14:29 | EKG ---
Test Reason : Blood Pressure : / mmHG Vent. Rate : 120 BPM Atrial Rate : 120 BPM P-R Int : 134 ms QRS Dur : 082 ms QT Int : 340 ms P-R-T Axes : 072 -16 072 degrees QTc Int : 480 ms Sinus tachycardia Biatrial enlargement Anterior infarct , age undetermined Abnormal ECG Confirmed by ARIELLA ADAMS, NICOLE ([id number]), subeditor FIDELINA HWANG ([id number]) on 03/09/2018 2:28:12 PM Referred By: Confirmed By:NICOLE KRISHNAN MD
== END 2018-01-07 16:49 | disposition home or self-care (01) | DRG 291 ==
LOC: ERS 11:43 → 2NO 15:49
PROVIDERS: ADMIT Internal Medicine; ATTEND Internal Medicine
DX: I13.0 Hypertensive heart and chronic kidney disease with heart failure and stage 1 through stage 4 chronic kidney disease, or unspecified chronic kidney disease (principal); I50.21 Acute systolic (congestive) heart failure; N17.9 Acute kidney failure, unspecified; J44.1 Chronic obstructive pulmonary disease with (acute) exacerbation; N18.9 Chronic kidney disease, unspecified; F15.10 Other stimulant abuse, uncomplicated; F17.210 Nicotine dependence, cigarettes, uncomplicated; Z90.49 Acquired absence of other specified parts of digestive tract
CPT/HCPCS: 36415; 70450; 71045; 80048; 80053; 80306; 81003; 81015; 82553; 83605; 83690; 83880; 84484; 85025; 85610; 85730; 87040; 87804; 93005; 93010; 94640; 96361; 96365; 96367; 96375; A4216; J0456; J0696; J1100; J1644; J1940; J1956; J3475; J7050; J7506; J7611; J7620; J7644